=== PATIENT | male | born 1955 | race Caucasian/White ===

== ENCOUNTER 2018-07-13 18:03 | Emergency (ER) | payer OTHER ==
[~2018-07-13] VITALS: Ht 188 cm; Wt 220.0 kg
[~2018-07-13 18:03] MED LIST: CELEXA20 MG PO; ESKALITH300 M1 PO; ESKALITH300 MG NG; LEVAQUIN750 MG PO; LITHIUM CARBON300 M1 PO; TRAZODONE HCL150 MG PO; ZYPREXA10 MG PO
[2018-07-13] MEDS ORDERED: MOTRIN400 MG PO (20:18)
[2018-07-13 20:36] VITALS: BP 152/94
== END 2018-07-13 20:37 | disposition home or self-care (01) ==
LOC: EME 18:03
DX: S01.311A Laceration without foreign body of right ear, initial encounter (principal); R51 Headache; M54.2 Cervicalgia; Y09 Assault by unspecified means; Y92.830 Public park as the place of occurrence of the external cause; Y07.9 Unspecified perpetrator of maltreatment and neglect; B19.20 Unspecified viral hepatitis C without hepatic coma
CPT/HCPCS: 70450; 99281; 99284